=== PATIENT | male | born 1985 | race Caucasian/White ===

== ENCOUNTER 2017-12-12 21:42 | Observation (INO) | payer OTHER, SELFPAY ==
[2017-12-12] MEDS ORDERED: MORPHINE 4 MG/ML SYR ONE (22:29)
[2017-12-12] MEDS ORDERED: NA CHLORIDE 0.9% 1,000 ML ONE (22:29)
[2017-12-12] MEDS ORDERED: ONDANSETRON 4 MG/2 ML VIAL ONE (22:29)
[2017-12-12 22:32] LABS: Absolute Lymphocytes (CBC) 1.7 K/uL (0.7-4.9); Absolute Monocytes 0.6 K/uL (0.1-1.3); Absolute Neutrophil 4.9 K/uL (1.8-8.0); Basophils % 0.2 % (0-1.3); Hematocrit 43.6 % (39.6-49.0); Lymphocytes % 23.8 % (15.3-44.8); MCH 32.1 pg (27.0-35.0); MCV 90.2 fL (80-100); MPV 8.7 fL (7.6-11.3); Monocytes % 7.6 % (3.3-12.3); RBC Red Blood Cell Count 4.84 M/uL (4.33-5.43)
[2017-12-12 22:36] LABS: Protime INR 0.99
[2017-12-12] MEDS ORDERED: ASPIRIN 81 MG CHEWABLE TABLET ONE (22:40)
[2017-12-12 22:56] LABS: ALT/SGPT 36 U/L (12-78); AST/SGOT 27 U/L (15-37); Albumin 4.2 g/dL (3.4-5.0); Alkaline Phosphatase 76 U/L (45-117); BUN Blood Urea Nitrogen 17 mg/dL (7-18); Bicarbonate 29 mmol/L (21-32); Bilirubin Direct < 0.1 mg/dL (0-0.2); Bilirubin Total 0.4 mg/dL (0.2-1.0); CKMB Creatine Kinase MB 2.1 ng/mL (0.3-3.6); Creatine Phosphokinase 218 U/L (39-308); Glucose Level 105 mg/dL (74-106); Lipase 97 U/L (73-393); Magnesium 2.4 mg/dL (1.8-2.4); NT PRO-BNP 16 pg/mL (<125); Potassium 3.6 mmol/L (3.5-5.1); Protein, Total 7.3 g/dL (6.4-8.2); Sodium Level 142 mmol/L (136-145)
--- NOTE | 2017-12-12 23:06 | RAD REPORT ---
EXAM DESCRIPTION: RAD - Chest Single View - 12/12/2017 10:56 pm CLINICAL HISTORY: CHEST PAIN Chest pain. COMPARISON: No comparisons FINDINGS: Portable technique limits examination quality. The lungs are grossly clear. The heart is normal in size. No displaced fractures. IMPRESSION: No acute intrathoracic process suspected.
[2017-12-12] MEDS ORDERED: ACETAMINOPHEN 500 MG TAB PO PRN (23:15)
[2017-12-12] MEDS ORDERED: ONDANSETRON 4 MG/2 ML VIAL IV PRN (23:15)
[2017-12-12] MEDS ORDERED: MORPHINE 4 MG/ML SYR IV PRN (23:15)
[2017-12-12] MEDS ORDERED: MAGNES/ALUMIN/SIMET 30ML UCUP PO PRN (23:17)
--- NOTE | 2017-12-12 23:21 | ER ---
Nurse's Notes [facility] Name: King Aguilar Age: 32 yrs Sex: Male : 1985 Arrival Date: 12/12/2017 Time: 21:44 Bed 20 Private MD: Ernie Valenzuela Diagnosis: Other chest pain;Chest pain, unspecified Presentation: 12/12 22:05 Presenting complaint: Patient states: he is having chest pain which radiates up his bb chest to his throat and down towards his stomach pt states symptoms started approx 1900 tonight lasted about 30 minutes had similar episode in the past after which he feels tired and takes a nap. Pt is also c/o SOB states he feels SOB on exertion and notices his O2 sats fall when he lays down. Transition of care: patient was not received from another setting of care. Onset of symptoms was December 12, 2017. Risk Assessment: Do you want to hurt yourself or someone else? Patient reports no desire to harm self or others. Initial Sepsis Screen: Does the patient meet any 2 criteria? No. Patient's initial sepsis screen is negative. Does the patient have a suspected source of infection? No. Patient's initial sepsis screen is negative. Care prior to arrival: None. 22:05 Method Of Arrival: Ambulatory bb 22:05 Acuity: SANDY 3 bb Historical: - Allergies: 22:09 No Known Allergies; bb - Home Meds: 22:09 Adderall XR 10 mg Oral cp24 1 cap once daily [Active]; bb - PMHx: 22:09 ADD/ADHD; bb - PSHx: 22:09 back surgery; bb - Immunization history:: Adult Immunizations up to date. - Social history:: Smoking status: Patient/guardian denies using tobacco, Patient uses alcohol, but reports only rare drinking. Patient/guardian denies using street drugs. - Ebola Screening: : No symptoms or risks identified at this time. - Family history:: not pertinent. Screenin:15 Abuse screen: Denies threats or abuse. Denies injuries from another. Nutritional bs1 screening: No deficits noted. Tuberculosis screening: No symptoms or risk factors identified. Fall Risk None identified. Assessment: 22:12 General: Appears in no apparent distress. uncomfortable, well groomed, Behavior is bs1 calm, cooperative, appropriate for age. Pain: Complains of pain in chest Pain radiates to throat and stomach Pain began 3 hours ago. Neuro: Level of Consciousness is awake, alert, obeys commands, Oriented to person, place, time, situation, Appropriate for age. Cardiovascular: Reports chest pain, shortness of breath, Heart tones S1 S2 present Capillary refill < 3 seconds Patient's skin is warm and dry. Respiratory: Reports shortness of breath at rest on exertion Airway is patent Trachea midline Respiratory effort is even, unlabored, Respiratory pattern is regular, symmetrical, Breath sounds are clear bilaterally. GI: Abdomen is round non-distended, Bowel sounds present X 4 quads. Abdomen is tender to palpation in epigastric area Reports nausea. : No signs and/or symptoms were reported regarding the genitourinary system. EENT: No signs and/or symptoms were reported regarding the EENT system. Derm: Skin is intact, Skin is pink, warm \\T\\ dry. normal. 23:12 Reassessment: Patient appears in no apparent distress at this time. Patient and/or bs1 family updated on plan of care and expected duration. Pain level reassessed. Patient is alert, oriented x 3, equal unlabored respirations, skin warm/dry/pink. Patient states feeling better. 12/13 01:15 Reassessment: Patient appears in no apparent distress at this time. Patient and/or bs1 family updated on plan of care and expected duration. Pain level reassessed. Patient is alert, oriented x 3, equal unlabored respirations, skin warm/dry/pink. Patient denies pain at this time. Patient states symptoms have improved. 01:56 Reassessment: No changes from previously documented assessment. Patient and/or family bs1 updated on plan of care and expected duration. Pain level reassessed. Patient is alert, oriented x 3, equal unlabored respirations, skin warm/dry/pink. Patient admitted to 2nd floor. No further needs at this time. Patient refused gown. Patient states "I am comfortable like this.". Vital Signs: 12/12 22:09 BP 135 / 78; Pulse 89; Resp 20 S; Temp 98.6(O); Pulse Ox 96% on R/A; Weight 104.33 kg bb (R); Height 5 ft. 10 in. (177.80 cm) (R); Pain 3/10; 23:09 BP 136 / 95; Pulse 86; Resp 16 S; Pulse Ox 97% on R/A; Pain 0/10; bs1 12/13 00:09 BP 128 / 84; Pulse 64; Resp 16 S; Pulse Ox 97% ; bs1 01:09 BP 131 / 88; Pulse 73; Resp 16; Temp 98(O); Pulse Ox 97% on R/A; Pain 0/10; bs1 12/12 22:09 Body Mass Index 33.00 (104.33 kg, 177.80 cm) bb ED Course: 12/12 21:44 Patient arrived in ED. am2 22:03 Ernie Valenzuela MD is Private Physician. am2 22:08 Triage completed. bb 22:09 Gold Andre MD is Attending Physician. ranjith 22:09 Arm band placed on Patient placed in an exam room, on a stretcher, on monitoring analyst, bb on pulse oximetry. EKG completed in triage. Results shown to MD. 22:10 No provider procedures requiring assistance completed. Inserted saline lock: 20 gauge bs1 in right antecubital area, using aseptic technique. Blood collected. Patient maintains SpO2 saturation greater than 95% on room air. 22:11 Jagruti Tony, RN is Primary Nurse. bs1 22:15 Patient has correct armband on for positive identification. Bed in low position. Call bs1 light in reach. Side rails up X 1. personnel monitor on. Pulse ox on. NIBP on. Warm blanket given. 22:23 Radiology exam delayed due to lab results not completed at this time. (BUN/Creatinine). vr 22:54 XRAY Chest (1 view) In Process Unspecified. EDMS 23:11 Ernie Valenzuela MD is Hospitalizing Provider. ranjith 23:[address] via wheelchair. kw1 23:40 CT completed. Patient tolerated procedure well. Patient moved back from CT. kw1 12/13 01:45 Patient admitted, IV remains in place. intact. bs1 Administered Medications: 12/12 22:32 Drug: NS 0.9% 1000 ml Route: IV; Rate: 125 ml/hr; Site: right antecubital; bs1 12/13 00:06 Follow up: IV Status: Infusion continued bs1 12/12 22:32 Drug: morphine 2 mg Route: IVP; Site: right antecubital; bs1 12/13 00:06 Follow up: Response: No adverse reaction bs1 12/12 22:32 Drug: Zofran 4 mg Route: IVP; Site: right antecubital; bs1 12/13 00:06 Follow up: Response: No adverse reaction bs1 12/12 22:39 Drug: Aspirin Chewable Tablet 162 mg Route: PO; bs1 12/13 00:06 Follow up: Response: No adverse reaction bs1 00:00 Drug: GI Cocktail without - (Maalox Suspension 30 ml, Lidocaine Liquid 2 % 15 bs1 ml) Route: PO; 00:05 Follow up: Response: No adverse reaction bs1 00:00 Drug: Lovenox 100 mg Route: Sub-Q; Site: right lower abdomen; bs1 00:05 Follow up: Response: No adverse reaction bs1 00:04 Drug: ProTONIX 40 mg Route: IVP; Site: right antecubital; bs1 00:05 Follow up: Response: No adverse reaction bs1 01:45 Not Given (Patient Refused): morphine 2 mg IVP once bs1 Outcome: 12/12 23:20 Decision to Hospitalize by Provider. [facility] 12/13 01:45 Condition: stable bs1 01:45 Instructed on the need for admit. bs1 01:54 Admitted to Med/surg accompanied by tech, via wheelchair, room 225, with chart, Report bs1 called to ALLYSSA Le 01:56 Patient left the ED. bs1 Signatures: Dispatcher [employer] EDGold Cook MD MD cha Ballard, Brenda, RN RN Neetu Schultz Amanda am2 Wilhelm, Kimberly kw1 Salazar, Brittany, RN RN bs1 Corrections: (The following items were deleted from the chart) 02:01 01:56 Reassessment: No changes from previously documented assessment. Patient and/or bs1 family updated on plan of care and expected duration. Pain level reassessed. Patient is alert, oriented x 3, equal unlabored respirations, skin warm/dry/pink. Patient admitted to 2nd floor. No further needs at this time. bs1
--- NOTE | 2017-12-12 23:21 | EDPHYS ---
Physician Documentation [facility] Name: King Aguilar Age: 32 yrs Sex: Male : 1985 Arrival Date: 12/12/2017 Time: 21:44 Bed 20 Private MD: Ernie Valenzuela ED Physician Gold Andre HPI: 12/12 22:19 This 32 yrs old Male presents to ER via Ambulatory with complaints of Chest ranjith Pain > 30 y/o. 22:19 The patient or guardian reports chest pain that is located primarily in the anterior ranjith chest wall, bilaterally. The pain radiates to Associated signs and symptoms: Pertinent positives: lightheadedness, shortness of breath. The chest pain is described as a pressure, squeezing. Duration: The patient or guardian reports multiple episodes, with no pattern. Modifying factors: The symptoms are alleviated by nothing. the symptoms are aggravated by nothing. Severity of pain: in the emergency department the pain has improved moderately. The patient has experienced a previous episode, last week. Historical: - Allergies: 22:09 No Known Allergies; bb - Home Meds: 22:09 Adderall XR 10 mg Oral cp24 1 cap once daily [Active]; bb - PMHx: 22:09 ADD/ADHD; bb - PSHx: 22:09 back surgery; bb - Immunization history:: Adult Immunizations up to date. - Social history:: Smoking status: Patient/guardian denies using tobacco, Patient uses alcohol, but reports only rare drinking. Patient/guardian denies using street drugs. - Ebola Screening: : No symptoms or risks identified at this time. - Family history:: not pertinent. ROS: 22:19 Constitutional: Negative for fever, chills, and weight loss, Eyes: Negative for injury, ranjith pain, redness, and discharge, ENT: Negative for injury, pain, and discharge, Neck: Negative for injury, pain, and swelling, Respiratory: Negative for shortness of breath, cough, wheezing, and pleuritic chest pain, Abdomen/GI: Negative for abdominal pain, nausea, vomiting, diarrhea, and constipation, Back: Negative for injury and pain, : Negative for injury, bleeding, discharge, and swelling, MS/Extremity: Negative for injury and deformity, Skin: Negative for injury, rash, and discoloration, Neuro: Negative for headache, weakness, numbness, tingling, and seizure, Psych: Negative for depression, anxiety, suicide ideation, homicidal ideation, and hallucinations, Allergy/Immunology: Negative for hives, rash, and allergies, Endocrine: Negative for neck swelling, polydipsia, polyuria, polyphagia, and marked weight changes, Hematologic/Lymphatic: Negative for swollen nodes, abnormal bleeding, and unusual bruising. 22:19 Cardiovascular: Positive for chest pain, of the chest. Exam: 22:19 Constitutional: This is a well developed, well nourished patient who is awake, alert, ranjith and in no acute distress. Head/Face: Normocephalic, atraumatic. Eyes: Pupils equal round and reactive to light, extra-ocular motions intact. Lids and lashes normal. Conjunctiva and sclera are non-icteric and not injected. Cornea within normal limits. Periorbital areas with no swelling, redness, or edema. ENT: Nares patent. No nasal discharge, no septal abnormalities noted. Tympanic membranes are normal and external auditory canals are clear. Oropharynx with no redness, swelling, or masses, exudates, or evidence of obstruction, uvula midline. Mucous membranes moist. Neck: Trachea midline, no thyromegaly or masses palpated, and no cervical lymphadenopathy. Supple, full range of motion without nuchal rigidity, or vertebral point tenderness. No Meningismus. Chest/axilla: Normal chest wall appearance and motion. Nontender with no deformity. No lesions are appreciated. Cardiovascular: Regular rate and rhythm with a normal S1 and S2. No gallops, murmurs, or rubs. Normal PMI, no JVD. No pulse deficits. Respiratory: Lungs have equal breath sounds bilaterally, clear to auscultation and percussion. No rales, rhonchi or wheezes noted. No increased work of breathing, no retractions or nasal flaring. Abdomen/GI: Soft, non-tender, with normal bowel sounds. No distension or tympany. No guarding or rebound. No evidence of tenderness throughout. Back: No spinal tenderness. No costovertebral tenderness. Full range of motion. Male : Normal genitalia with no discharge or lesions. Skin: Warm, dry with normal turgor. Normal color with no rashes, no lesions, and no evidence of cellulitis. MS/ Extremity: Pulses equal, no cyanosis. Neurovascular intact. Full, normal range of motion. Neuro: Awake and alert, GCS 15, oriented to person, place, time, and situation. Cranial nerves II-XII grossly intact. Motor strength 5/5 in all extremities. Sensory grossly intact. Cerebellar exam normal. Normal gait. Psych: Awake, alert, with orientation to person, place and time. Behavior, mood, and affect are within normal limits. Vital Signs: 22:09 BP 135 / 78; Pulse 89; Resp 20 S; Temp 98.6(O); Pulse Ox 96% on R/A; Weight 104.33 kg bb (R); Height 5 ft. 10 in. (177.80 cm) (R); Pain 3/10; 23:09 BP 136 / 95; Pulse 86; Resp 16 S; Pulse Ox 97% on R/A; Pain 0/10; bs1 12/13 00:09 BP 128 / 84; Pulse 64; Resp 16 S; Pulse Ox 97% ; bs1 01:09 BP 131 / 88; Pulse 73; Resp 16; Temp 98(O); Pulse Ox 97% on R/A; Pain 0/10; bs1 12/12 22:09 Body Mass Index 33.00 (104.33 kg, 177.80 cm) bb MDM: 12/12 22:09 Patient medically screened. [facility] 22:22 Data reviewed: vital signs, nurses notes, lab test result(s), EKG, radiologic studies, [facility] CT scan, plain films. 12/12 22:18 Order name: Basic Metabolic Panel; Complete Time: 23: [facility] 12/12 22:18 Order name: CBC with Diff; Complete Time: 23: [facility] 12/12 22:18 Order name: Ckmb; Complete Time: 23: [facility] 12/12 22:18 Order name: CPK; Complete Time: 23: [facility] 12/12 22:18 Order name: LFT's; Complete Time: 23: [facility] 12/12 22:18 Order name: Magnesium; Complete Time: 23: [facility] 12/12 22:18 Order name: NT PRO-BNP; Complete Time: 23:06 [facility] 12/12 22:18 Order name: PT-INR; Complete Time: 23:06 [facility] 12/12 22:18 Order name: Ptt, Activated; Complete Time: 23:06 [facility] 12/12 22:18 Order name: Troponin (emerg Dept Use Only); Complete Time: 23:06 [facility] 12/12 22:18 Order name: Lipase; Complete Time: 23:06 [facility] 12/12 22:18 Order name: UDS [facility] 12/12 23:19 Order name: Basic Metabolic Panel [facility] 12/12 23:19 Order name: Basic Metabolic Panel [facility] 12/12 22:18 Order name: XRAY Chest (1 view); Complete Time: 23:20 [facility] 12/12 22:19 Order name: CT Aorta for Dissection [facility] 12/12 23:19 Order name: CBC with Automated Diff [facility] 12/12 23:19 Order name: CBC with Automated Diff [facility] 12/12 23:19 Order name: Troponin I [facility] 12/12 23:19 Order name: Troponin I [facility] 12/12 23:19 Order name: Troponin I [facility] 12/13 00:11 Order name: Urine Dipstick--Ancillary (enter results) [facility] 12/13 01:40 Order name: Urine Dipstick-Ancillary [facility] 12/12 22:18 Order name: EKG; Complete Time: 22:18 [facility] 12/12 22:18 Order name: Cardiac monitoring; Complete Time: 22:18 [facility] 12/12 22:18 Order name: EKG - Nurse/Tech; Complete Time: 22:18 [facility] 12/12 22:18 Order name: IV Saline Lock; Complete Time: 22:18 [facility] 12/12 22:18 Order name: Labs collected and sent; Complete Time: 22:36 [facility] 12/12 22:18 Order name: O2 Per Protocol; Complete Time: 22:19 [facility] 12/12 22:18 Order name: O2 Sat Monitoring; Complete Time: 22:19 [facility] 12/12 22:18 Order name: Urine Dipstick-Ancillary (obtain specimen); Complete Time: 00:08 [facility] 12/12 23:15 Order name: CONS Physician Consult [facility] 12/12 23:19 Order name: Regular [facility] 12/12 23:19 Order name: EKG Electrocardiogram [facility] 12/12 23:19 Order name: EKG Electrocardiogram [facility] 12/12 23:19 Order name: EKG Electrocardiogram [facility] 12/12 23:19 Order name: EKG Electrocardiogram ED[facility] Administered Medications: 22:32 Drug: NS 0.9% 1000 ml Route: IV; Rate: 125 ml/hr; Site: right antecubital; bs1 12/13 00:06 Follow up: IV Status: Infusion continued bs1 12/12 22:32 Drug: morphine 2 mg Route: IVP; Site: right antecubital; bs1 12/13 00:06 Follow up: Response: No adverse reaction bs1 12/12 22:32 Drug: Zofran 4 mg Route: IVP; Site: right antecubital; bs1 12/13 00:06 Follow up: Response: No adverse reaction bs1 12/12 22:39 Drug: Aspirin Chewable Tablet 162 mg Route: PO; bs1 12/13 00:06 Follow up: Response: No adverse reaction bs1 00:00 Drug: GI Cocktail without - (Maalox Suspension 30 ml, Lidocaine Liquid 2 % 15 bs1 ml) Route: PO; 00:05 Follow up: Response: No adverse reaction bs1 00:00 Drug: Lovenox 100 mg Route: Sub-Q; Site: right lower abdomen; bs1 00:05 Follow up: Response: No adverse reaction bs1 00:04 Drug: ProTONIX 40 mg Route: IVP; Site: right antecubital; bs1 00:05 Follow up: Response: No adverse reaction bs1 01:45 Not Given (Patient Refused): morphine 2 mg IVP once bs1 Disposition: 12/12/17 23:20 Hospitalization ordered by Ernie Valenzuela for Observation. Preliminary diagnosis are Other chest pain, Chest pain, unspecified. - Bed requested for Telemetry/MedSurg (observation). - Status is Observation. bs1 - Condition is Stable. - Problem is new. - Symptoms have improved. UTI on Admission? No Signatures: Dispatcher [employer] EDMadai Quach RN RN kl Anderson, Corey, MD MD cha Ballard, Brenda RN RN Jagruti Lao RN RN bs1 Corrections: (The following items were deleted from the chart) 12/12 23:47 23:20 Hospitalization Ordered by Ernie Valenzuela MD for Observation. Preliminary kl diagnosis is Other chest pain; Chest pain, unspecified. Bed requested for Telemetry/MedSurg (observation). Status is Observation. Condition is Stable. Problem is new. Symptoms have improved. UTI on Admission? No. ranjith 12/13 01:56 12/12 23:47 12/12/2017 23:20 Hospitalization Ordered by Ernie Valenzuela MD for bs1 Observation. Preliminary diagnosis is Other chest pain; Chest pain, unspecified. Bed requested for Telemetry/MedSurg (observation). Status is Observation. Condition is Stable. Problem is new. Symptoms have improved. UTI on Admission? No. kl
[2017-12-12] MEDS ORDERED: MAGNE/ALUM HYDROXD 30 ML UCUP ONE (23:24)
[2017-12-12] MEDS ORDERED: PANTOPRAZOLE 40 MG INJ ONE (23:24)
[2017-12-12] MEDS ORDERED: ENOXAPARIN 100 MG/ML SYR SQ ONE (23:24)
[2017-12-12] MEDS ORDERED: LIDOCAINE VISCOUS 2% SOLN 15 ML UDC ONE (23:24)
[2017-12-12] MEDS: NA CHLORIDE 0.9% 1,000 ML IV SCH (23:45)
[2017-12-13 01:38] LABS: Barbiturates NEGATIVE (NEGATIVE); Benzodiazepines NEGATIVE (NEGATIVE); Cocaine NEGATIVE (NEGATIVE); METHAMPHETAM POSITIVE (NEGATIVE); Methadone NEGATIVE (NEGATIVE); Opiates NEGATIVE (NEGATIVE); Phencyclidine NEGATIVE (NEGATIVE); THC Cannibis NEGATIVE (NEGATIVE)
[2017-12-13 01:40] LABS: Urine Blood NEGATIVE (NEG); Urine Glucose NEGATIVE (NEG); Urine Protein NEGATIVE (NEG); Urine pH 6.5 (5.0-7.0)
[2017-12-13 02:11] VITALS: BMI 32.8
[2017-12-13 04:42] LABS: Urine Appearance CLEAR; Urine Bilirubin NEGATIVE (NEG); Urine Blood NEGATIVE (NEG); Urine Color YELLOW; Urine Glucose NEGATIVE (NEG); Urine Protein NEGATIVE (NEG); Urine Specific Gravity >=1.030 (1.005-1.030); Urine pH 6.5 (5.0-7.0)
[2017-12-13 04:50] LABS: Urine Microscopic Reflex NO UMIC
[2017-12-13] MEDS: NA CHLORIDE 0.9% 1,000 ML IV SCH ×2 (04:59→09:16)
[2017-12-13 05:07] LABS: Absolute Lymphocytes (CBC) 2.1 K/uL (0.7-4.9); Absolute Monocytes 0.4 K/uL (0.1-1.3); Absolute Neutrophil 3.3 K/uL (1.8-8.0); Basophils % 0.5 % (0-1.3); Eosinophils % 1.3 % (0-4.4); Hematocrit 41.5 % (39.6-49.0); Lymphocytes % 35.1 % (15.3-44.8); MCH 31.8 pg (27.0-35.0); MCV 90.3 fL (80-100); MPV 8.8 fL (7.6-11.3); Monocytes % 6.8 % (3.3-12.3)
[2017-12-13 05:23] LABS: Potassium 3.9 mmol/L (3.5-5.1)
[2017-12-13 06:02] VITALS: O2SAT 97
--- NOTE | 2017-12-13 08:17 | RAD REPORT ---
EXAM DESCRIPTION: CT - Angio Aorta For Dissection - 12/13/2017 4:47 am CLINICAL HISTORY: Chest pain radiating to the back. Chest pain;Dyspnea COMPARISON: CT-STONE PROTOCOL dated 03/31/2007 TECHNIQUE: CT angiography of the aorta was performed with MIPs. All CT scans are performed using dose optimization technique as appropriate and may include automated exposure control or mA/KV adjustment according to patient size. FINDINGS: A left aortic arch is present with 4 vessel branching pattern of the great vessels.No acut e aortic finding is seen such as aneurysm, penetrating ulcer or dissection. The celiac axis, SMA, IM A and renal arteries are widely patent. No evidence of pulmonary embolism. The lungs are clear. The liver demonstrates no focal mass or biliary dilatation.The spleen, pancreas, adrenal glands and k idneys are within normal limits for arterial phase imaging. No bowel obstruction, free fluid or abscess.No pathologic enlarged lymphadenopathy identified. No fracture or worrisome bone lesion seen.Moderate L5-S1 spondylosis. IMPRESSION: No acute aortic finding is demonstrated.
[2017-12-13] MEDS ORDERED: ASPIRIN EC 81 MG TAB PO SCH (09:00)
[2017-12-13] MEDS ORDERED: MAGNES/ALUMIN/SIMET 30ML UCUP PO PRN (10:05)
[2017-12-13] MEDS ORDERED: LIDOCAINE VISCOUS 2% SOLN 15 ML UDC PO PRN (10:06)
[2017-12-13] MEDS ORDERED: DICYCLOMINE HCL 10 MG CAP PO SCH (14:00)
[2017-12-13 17:43] VITALS: BP 116/67; TEMP 97.9
--- NOTE | 2017-12-14 10:32 | EKG ---
Test Date: 2017-12-12 Test Time: 21:58:00 [employer]onemason Helper: RAKESH MEASUREMENT RESULTS: Intervals: Rate: 89 KS: 178 QRSD: 90 QT: 348 QTc: 423 [place]: P: 58 KS: 178 QRS: 47 T: 26 INTERPRETIVE STATEMENTS: Normal sinus rhythm Normal ECG No previous ECG available for comparison Electronically Signed On 12-14-17 10:27:44 CDT by Meng Steven
--- NOTE | 2017-12-14 13:33 | CON ---
Mr. King Aguilar is admitted to Dr. Valenzuela on 12/12/2017 for chest pain. History Of Present Illness: Mr. Aguilar is only 32. No previous cardiac history. He has a history of attention deficit disorder, elevated stress in his life. He takes Adderall for about 2-3 years. He had symptoms of chest pain, diaphoresis that would last about 45 minutes, nonexertional. Denied PND , orthopnea, pedal edema, palpitations, or syncope. By the time I saw him, he had a normal EKG, norm al chest x-ray, normal troponin, CPKs, and MBs. He was still having chest pain when I saw him. Allergies: NONE. Review of Systems: Negative. Social History: Positive for stress issues. Denies any drug, alcohol, or tobacco abuse. Family History: Positive for heart disease. Medications: At home include Adderall. Physical Examination: General: He appeared to be very anxious, but no acute distress. Vital signs: Stable, afebrile. HEENT: Negative. Neck: Supple without any bruit, lymphadenopathy, JVD, or thyromegaly. Chest: Clear to auscultation, percussion. Cardiac: Revealed a regular rhythm and rate without any murmurs, gallops, or rubs. Abdomen: Benign. Extremities: Revealed no clubbing, cyanosis, or edema. Diagnostic Data: Normal. Impression And Plan: Atypical chest pain, more likely to be gastroesophageal reflux disease or esoph agitis secondary to stress. Nevertheless, he has a family history of heart disease and I would feel more comfortable if we an echocardiogram and a stress test before he leaves. If that is normal, he c an go home. I would consider a proton pump inhibitor on him. The case was discussed with Dr. Miguel FOWLER/RAFAEL Voice ID: [id number] Report ID: [id number]
--- NOTE | 2017-12-14 16:21 | SS ---
Date of Discharge: 12/13/2017 The patient was admitted from the emergency room where he was brought by some friends, complaining of rather significant sternal chest pain. He stated the episode like this in the past; however, this o ne has been more persistent. There was no definitive diagnosis made in the emergency room; however, due to his persistent symptoms, it was felt that he should be evaluated and he was therefore admitted . During the hospitalization, he had minimal amount of discomfort, vital signs remained stable. Wor kup included cardiac and stress tests, were within normal limits. On discussion of the issue with darling e patient, it seems that he gets dyspnea with minimal exertion episodically and this results sometime s in the chest pain. He also has multiple joint pains. This has been evaluated on an outpatient bas is and suggestions were made for him to follow up with the progressive die maker. During his hospital stay he was given Bentyl, which made him quite sleepy; however whether effect of this or not, it is unsure . In any event he was stable enough and asymptomatic to be discharged to followup in a couple of day s in the office. The only positive chemical finding was a borderline serum cortisols, this we will r epeat in a.m. 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 Discharged on no medications. Try to withhold hi s Adderall, which he has been on for a number of years. Possibly this is playing a part as well as jay dotson has been under some stress as of late. Discharged in good condition. Final Diagnosis: Chest pain atypical, unknown etiology. HR/MODL Voice ID: [id number] Report ID: [id number]
--- NOTE | 2017-12-16 08:28 | ECHO ---
HEIGHT: 5 ft 10 in WEIGHT: 229 lb 3.2 oz DATE OF STUDY: 12/13/[address]: Meng Steven MD 2-DIMENSIONAL: YES M.MODE: YES DOPPLER: YES COLOR FLOW: YES TDS: NO PORTABLE: NO DEFINITY: NO BUBBLE STUDY: NO DIAGNOSIS: CHEST PAIN CARDIAC HISTORY: CATHERIZATION: NO SURGERY: NO PROSTHETIC VALVE: NO PACEMAKER: NO MEASUREMENTS (cm) DIASTOLIC (NORMALS) SYSTOLIC (NORMALS) IVSd 1.0 (0.6-1.2) LA Diam 3.4 (1.9-4.0) LVEF 76% LVIDd 4.5 (3.5-5.7) LVIDs 2.5 (2.0-3.5) %FS 44% LVPWd 1.1 (0.6-1.2) Ao Diam 3.6 (2.0-3.7) 2 DIMENSIONAL ASSESSMENT: RIGHT ATRIUM: NORMAL LEFT ATRIUM: NORMAL RIGHT VENTRICLE: NORMAL LEFT VENTRICLE: NORMAL TRICUSPID VALVE: NORMAL MITRAL VALVE: NORMAL PULMONIC VALVE: NORMAL AORTIC VALVE: NORMAL PERICARDIAL EFFUSION: NONE AORTIC ROOT: NORMAL LEFT VENTRICULAR WALL MOTION: NORMAL. DOPPLER/COLOR FLOW: NORMAL. COMMENTS: NORAML 2D ECHO WITH DOPPLER. TECHNOLOGIST: KATE BAKER
--- NOTE | 2017-12-16 08:40 | TREADMILL ---
70% H.R.: 132 85% H.R.: 160 90% H.R.: 169 100% H.R.: 188 DX: CHEST PAIN Date of Study: 12/13/17 Ht: 5 10 Wt: 229 lb 3.2 oz Consulting Physician: ALEKS MEDICATIONS: TYLENOL, MAALOX, ASPIRIN, ZOFRAN HISTORY: 32 YEAR OLD MALE. COMPLAINTS CHEST PAIN. MEDICAL HISTORY ADD/ADHD PHYSICIAL EXAMINATION: RESTING B.P.: 127/87 RESTING H.R.: 66 RESTING EKG: NORMAL PROTOCOL: ANAM ROUTINE EXERCISE TIME: 10:31 MAXIMUM HEART RATE: 173 % OF PREDICTED B.P. AT PEAK STRESS: 154/82 H.R. AT 1 MINUTE POST EXERCISE: 153 IMPRESSION: ANAM ROUTINE STRESS STOPPED DUE TO TARGET HEART RATE REACHED PER PROTOCOL. NO SUPRA VENTRICULAR TACHYCARDIA. NO VENTRICULAR TACHYCARDIA. NO PREMATURE VENTRICULAR COMPLEXES. DENIES CHEST PAIN, SHORTNESS OF BREATH DURING RECOVERY. NEGATIVE EXERCISE TREADMILL TEST.
== END 2017-12-13 18:40 | disposition home or self-care (01) ==
LOC: ER 21:42 → ERHOLD 23:23 → 2ND 12-13 00:07
PROVIDERS: ADMIT Family Medicine; ATTEND Family Medicine
DX: R07.89 Other chest pain (principal); F98.8 Other specified behavioral and emotional disorders with onset usually occurring in childhood and adolescence
CPT/HCPCS: 36415; 71045; 71275; 74175; 80048; 80076; 80307; 81003; 82533; 82550; 82553; 83690; 83735; 83880; 84484; 85025; 85610; 85730; 93005; 93017; 93306; 96361; 96372; 96374; 96375; 99285; C9113; G0378; J1650; J2405; J7030; Q9967

== ENCOUNTER 2018-04-13 07:43 | Emergency (ER) | payer OTHER ==
--- OUTSIDE RECORDS SUMMARY | 2018-04-13 07:46 | XMS REPORT ---
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
--- OUTSIDE RECORDS SUMMARY | 2018-04-13 07:46 | XMS REPORT ---
:1985 Author Organization eClinicalWorks Care Team Providers Name Role Phone Rayn [facility] Provider Role Unavailable Allergies No Known [...]
--- OUTSIDE RECORDS SUMMARY | 2018-04-13 07:46 | XMS REPORT | Continuity of Care Document ---
:1985 Author Organization Interface Problems Problem Status Onset Classification Date Comments Source Date Reported Adrenal Active Diagnosis 04/08/2018 Joe insufficiency [place] Anxiety Active Problem 04/08/2018 Joe Peña Obesity Active Problem 04/08/2018 Joe Peña Migraine Active Problem 04/08/2018 Joe Peña ED Active Diagnosis 04/08/2018 Joe Peña Arthralgia Active Problem 04/08/2018 Joe Peña Chronic fatigue, Active Problem 04/08/2018 Joe unspecified [place] Medications Medication Details Route Status Patient Ordering Order Source Instructions Provider Date Adderall 1 tab(s) orally Active 20 mg orally 2 [place] Joe times a day [place] tramadol 1 tab(s) orally Active 50 mg orally [place] Diaz prn [place] Allergies, Adverse Reactions, Alerts Substance Category Reaction Severity Reaction Status Date Comments Source type Reported N.K.D.A. Adverse Info Not Adverse Active Joe Reaction Available Reaction 8 [place] Immunizations Immunization Date Given Site Status Last Updated Comments Source Results Order Results Value Reference Date Interpretation Comments Source Name Range Vital Signs Vital Sign Value Date Comments Source Weight 229 03/13/2018 Joe Peña Height 70 03/13/2018 Joe Peña Encounters Location Location Encounter Encounter Reason Attending ADM DC Status Source Details Type Number For Provider Date Date Visit Procedures Procedure Code Date Perfomer Comments Source
--- OUTSIDE RECORDS SUMMARY | 2018-04-13 07:46 | XMS REPORT ---
:1985 Author Organization eClinicalWorks Care Team Providers Name Role Phone Cassie Peña Provider Role Unavailable Allergies No Known Allergies Problems Problem Type Condition Code Onset Dates Condition Status Problem Anxiety F41.9 Active Problem Obesity (BMI 30-39.9) E66.9 Active Problem Migraine G43.909 Active Problem Adrenal insufficiency E27.40 Active Problem ED (erectile dysfunction) N52.9 Active Problem Arthralgia M25.50 Active Problem Chronic fatigue, unspecified R53.82 Active Medications No Known Medications Results No Known Results Summary Purpose eClinicalWorks Submission
--- OUTSIDE RECORDS SUMMARY | 2018-04-13 07:46 | XMS REPORT ---
:1985 Author Organization eClinicalWorks Care Team Providers Name Role Phone Cassie Peña Provider Role Unavailable Allergies No Known Allergies Problems Problem Type Condition Code Onset Dates Condition Status Assessment Adrenal insufficiency E27.40 Active Problem Anxiety F41.9 Active Problem Obesity (BMI 30-39.9) E66.9 Active Problem Migraine G43.909 Active Problem Adrenal insufficiency E27.40 Active Problem ED (erectile dysfunction) N52.9 Active Problem Arthralgia M25.50 Active Problem Chronic fatigue, unspecified R53.82 Active Medications No Known Medications Results No Known Results Summary Purpose eClinicalWorks Submission
--- OUTSIDE RECORDS SUMMARY | 2018-04-13 07:46 | XMS REPORT ---
:1985 Author Organization eClinicalWorks Care Team Providers Name Role Phone Cassie Peña Provider Role Unavailable Allergies, Adverse Reactions, Alerts Substance Reaction Event Type N.K.D.A. Info Not Available Non Drug Allergy Problems Problem Type Condition Code Onset Dates Condition Status Assessment ED (erectile dysfunction) N52.9 Active Assessment Adrenal insufficiency E27.40 Active Problem Anxiety F41.9 Active Problem Obesity (BMI 30-39.9) E66.9 Active Problem Migraine G43.909 Active Problem Adrenal insufficiency E27.40 Active Problem ED (erectile dysfunction) N52.9 Active Problem Arthralgia M25.50 Active Problem Chronic fatigue, unspecified R53.82 Active Assessment Arthralgia M25.50 Active Assessment Obesity (BMI 30-39.9) E66.9 Active Assessment Chronic fatigue, unspecified R53.82 Active Assessment Anxiety F41.9 Active Assessment Migraine G43.909 Active Medications Medication Code System Code Instructions Start Date End Date Status Dosage Adderall [facility] 35466934149 20 mg orally 2 Active 1 tab(s) times a day tramadol ND 50830911836 50 mg orally prn Active 1 tab(s) Vital Signs Date/Time: Mar 13, 2018 BMI 32.85 Index Weight 229 lbs Height 70 in Results Name Result Date Reference Range Unit Abnormality Flag TSH+Free T4* ----TSH 1.660 73031717 0.450-4.500 uIU/mL ----T4,Free(Direct) 1.00 79835943 0.82-1.77 ng/dL Testosterone, Total *Serum* (USE THIS FOR M & F PTs) ----Testosterone, Total, 455 41306430 ng/dL LC/MS Lipid Panel w/non-HDL* ----Non-HDL Cholesterol 129 94410070 0-129 mg/dL ----LDL Cholesterol Calc 105 24806856 0-99 mg/dL H ----Cholesterol, Total 166 80041491 100-199 mg/dL ----Triglycerides 120 82493861 0-149 mg/dL ----HDL Cholesterol 37 66829613 >39 mg/dL L ----VLDL Cholesterol [place] 24 38135409 5-40 mg/dL DHEA, Serum ----Dehydroepiandrostero 763 82408532 31-701 ng/dL H ne (DHEA) Prolactin* ----Prolactin 17.0 23399660 4.0-15.2 ng/mL H Cortisol - PM* ----Cortisol - PM 7.6 20180314 2.3-11.9 ug/dL ACTH, Plasma* ----ACTH, Plasma 33.5 09072571 7.2-63.3 pg/mL Comp. Metabolic Panel (14)* ----Potassium 4.3 20180314 3.5-5.2 mmol/L ----Sodium 142 49834041 134-144 mmol/L ----BUN/Creatinine Ratio 10 20180314 9-20 ----eGFR If Africn Am 119 [id number] >59 mL/min/1.73 ----eGFR If NonAfricn Am 103 75749020 >59 mL/min/1.73 ----Creatinine 0.97 19149684 0.76-1.27 mg/dL ----BUN 10 20180314 6-20 mg/dL ----Glucose 92 95189080 65-99 mg/dL ----AST (SGOT) 31 20180314 0-40 IU/L ----Globulin, Total 2.5 85835365 1.5-4.5 g/dL ----ALT (SGPT) 39 20180314 0-44 IU/L ----A/G Ratio 1.8 20180314 1.2-2.2 ----Bilirubin, Total 0.6 11203559 0.0-1.2 mg/dL ----Alkaline Phosphatase 58 20180314 39-117 IU/L ----Carbon Dioxide, 25 20180314 20-29 mmol/L Total ----Calcium 9.3 53301685 8.7-10.2 mg/dL ----Protein, Total 6.9 20180314 6.0-8.5 g/dL ----Albumin 4.4 20180314 3.5-5.5 g/dL ----Chloride 103 71850677 96-106 mmol/L Cortisol - AM* ----Cortisol - AM 13.6 20180314 6.2-19.4 ug/dL Summary Purpose eClinicalWorks Submission
--- OUTSIDE RECORDS SUMMARY | 2018-04-13 07:46 | XMS REPORT ---
:1985 Author Organization eClinicalWorks Care Team Providers Name Role Phone Davis, [facility] Provider Role Unavailable Allergies, Adverse Reactions, Alerts Substance Reaction Event Type N.K.D.A. 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
[2018-04-13] MEDS ORDERED: KETOROLAC 30 MG/ML INJ ONE (08:09)
--- NOTE | 2018-04-13 08:32 | RAD REPORT ---
EXAM DESCRIPTION: CT - C Spine Wo Con - 04/13/2018 8:20 am CLINICAL HISTORY: Neck pain, decreased range of motion COMPARISON: None. TECHNIQUE: Axial 2 mm thick images of the cervical spine were obtained with sagittal and coronal rec onstruction images generated and reviewed. All CT scans are performed using dose optimization technique as appropriate and may include automated exposure control or mA/KV adjustment according to patient size. FINDINGS: Cervical body height and alignment are normal. No disk space narrowing. No fracture or acu te bony abnormality. Patient has minimal or early spurring along the right-side posterior endplates C 5-6. No canal encroachment. No paraspinal mass or hematoma. Patient has a few small nonspecific cervical lymph nodes not regarded as suspicious. Central canal detail is inherently limited on CT imaging. IMPRESSION: Negative CT cervical spine examination for acute or significant finding.
[2018-04-13] MEDS ORDERED: predniSONE 20 MG TAB ONE (08:56)
[2018-04-13] MEDS ORDERED: HYDROCODONE/APAP 10/325 TAB ONE (08:57)
--- NOTE | 2018-04-13 09:02 | EDPHYS ---
Physician Documentation [facility] Name: King Aguilar Age: 32 yrs Sex: Male : 1985 Arrival Date: 04/13/2018 Time: 07:46 Bed 20 Private MD: Deana Davish ED Physician Max Maynard HPI: 04/13 08:51 This 32 yrs old Male presents to ER via Ambulatory with complaints of Stiff gs Neck. 08:51 The patient or guardian complains of pain. The symptoms are located on the scalp and gs right trapezius. Onset: The symptoms/episode began/occurred today. Associated signs and symptoms: Pertinent negatives: bladder incontinence, bowel incontinence, numbness, tingling. The pain does not radiate. Modifying factors: the symptoms are aggravated by movement. Severity of symptoms: At their worst the symptoms were moderate, in the emergency department the symptoms are unchanged. The patient has experienced similar episodes in the past, several times, past two weeks intermittent had neck xrays 2 weeks ago. Historical: - Allergies: 07:53 No Known Allergies; hb - Home Meds: 07:53 None [Active]; hb - PMHx: 07:54 ADD/ADHD; hb - PSHx: 07:53 back surgery; hb - Immunization history:: Adult Immunizations up to date. - Social history:: Smoking status: Patient/guardian denies using tobacco. - Ebola Screening: : No symptoms or risks identified at this time. ROS: 08:51 All other systems are negative. gs Exam: 08:51 Head/Face: Normocephalic, atraumatic. Eyes: Pupils equal round and reactive to light, gs extra-ocular motions intact. Lids and lashes normal. Conjunctiva and sclera are non-icteric and not injected. Cornea within normal limits. Periorbital areas with no swelling, redness, or edema. ENT: Nares patent. No nasal discharge, no septal abnormalities noted. Tympanic membranes are normal and external auditory canals are clear. Oropharynx with no redness, swelling, or masses, exudates, or evidence of obstruction, uvula midline. Mucous membranes moist. Chest/axilla: Normal chest wall appearance and motion. Nontender with no deformity. No lesions are appreciated. Cardiovascular: Regular rate and rhythm with a normal S1 and S2. No gallops, murmurs, or rubs. Normal PMI, no JVD. No pulse deficits. Respiratory: Lungs have equal breath sounds bilaterally, clear to auscultation and percussion. No rales, rhonchi or wheezes noted. No increased work of breathing, no retractions or nasal flaring. Abdomen/GI: Soft, non-tender, with normal bowel sounds. No distension or tympany. No guarding or rebound. No evidence of tenderness throughout. Back: No spinal tenderness. No costovertebral tenderness. Full range of motion. Skin: Warm, dry with normal turgor. Normal color with no rashes, no lesions, and no evidence of cellulitis. MS/ Extremity: Pulses equal, no cyanosis. Neurovascular intact. Full, normal range of motion. Neuro: Awake and alert, GCS 15, oriented to person, place, time, and situation. Cranial nerves II-XII grossly intact. Motor strength 5/5 in all extremities. Sensory grossly intact. Cerebellar exam normal. Normal gait. 08:51 Constitutional: The patient appears alert, awake. 08:51 Neck: C-spine: no acute changes, vertebral tenderness, is not appreciated, ROM/movement: pain, with any movement. Vital Signs: 07:52 BP 108 / 88; Pulse 80; Resp 16; Temp 97.7(O); Pulse Ox 100% on R/A; Pain 8/10; hb MDM: 07:53 Patient medically screened. jr8 08:51 Differential diagnosis: Cervical Disc Herniation Cervical Discogenic Pain cervical gs strain, torticollis. Data reviewed: vital signs, nurses notes. Counseling: I had a detailed discussion with the patient and/or guardian regarding: the historical points, exam findings, and any diagnostic results supporting the discharge/admit diagnosis, radiology results. Response to treatment: the patient's symptoms have markedly improved after treatment, and as a result, I will discharge patient. 04/13 07:58 Order name: CT C Spine; Complete Time: 08:45 gs Administered Medications: 08:05 Drug: TORadol 30 mg Route: IM; Site: left deltoid; iw 08:47 Follow up: Response: No adverse reaction; Pain is unchanged, physician notified em 08:57 Drug: predniSONE 40 mg Route: PO; em 08:57 Drug: Marshall 10 mg-325 mg 1 tabs Route: PO; em Disposition: 04/13/18 09:01 Discharged to Home. Impression: Torticollis. - Condition is Stable. - Discharge Instructions: Acute Torticollis, Adult. - Prescriptions for Prednisone 20 mg Oral Tablet - take 1 tablet by ORAL route once daily for 5 days; 5 tablet. Tylenol- Codeine #4 300-60 mg Oral Tablet - take 1 tablet by ORAL route every 6 hours As needed; 10 tablet. - Medication Reconciliation Form, Thank You Letter, Antibiotic Education, Prescription Opioid Use form. - Follow up: Andry Lai DO; When: 2 - 3 days; Reason: Re-evaluation by your physician. Follow up: Alden Joseph MD; When: 2 - 3 days; Reason: Re-evaluation by your physician. Signatures: Dispatcher [employer] EDGerald Kramer, ALIGNMENT SPECIALIST ALIGNMENT SPECIALIST Barbara Resendiz RN RN Abhishek Chapa PA PA jr8 Virgen Worrell RN RN hb Starr, Gregory, MD MD Corrections: (The following items were deleted from the chart) 09:27 09:01 04/13/2018 09:01 Discharged to Home. Impression: Torticollis. Condition is em Stable. Forms are Medication Reconciliation Form, Thank You Letter, Antibiotic Education, Prescription Opioid Use. Follow up: Andry Lai; When: 2 - 3 days; Reason: Re-evaluation by your physician. Follow up: Alden Joseph; When: 2 - 3 days; Reason: Re-evaluation by your physician. gs
--- NOTE | 2018-04-13 09:02 | ER ---
Nurse's Notes [facility] Name: King Aguilar Age: 32 yrs Sex: Male : 1985 Arrival Date: 04/13/2018 Time: 07:46 Bed 20 Private MD: Ziggy Davis Diagnosis: Torticollis Presentation: 04/13 07:51 Presenting complaint: Neck pain upon waking today. Denies injury. Transition of care: hb patient was not received from another setting of care. Onset of symptoms was April 13, 2018. Risk Assessment: Do you want to hurt yourself or someone else? Patient reports no desire to harm self or others. Initial Sepsis Screen: Does the patient meet any 2 criteria? No. Patient's initial sepsis screen is negative. Does the patient have a suspected source of infection? No. Patient's initial sepsis screen is negative. Care prior to arrival: None. 07:51 Method Of Arrival: Ambulatory 07:51 Acuity: SANDY 4 hb Historical: - Allergies: 07:53 No Known Allergies; hb - Home Meds: 07:53 None [Active]; hb - PMHx: 07:54 ADD/ADHD; hb - PSHx: 07:53 back surgery; hb - Immunization history:: Adult Immunizations up to date. - Social history:: Smoking status: Patient/guardian denies using tobacco. - Ebola Screening: : No symptoms or risks identified at this time. Screenin:54 Abuse screen: Denies threats or abuse. Denies injuries from another. Nutritional hb screening: No deficits noted. Tuberculosis screening: No symptoms or risk factors identified. Fall Risk None identified. Assessment: 07:56 General: Appears uncomfortable, Behavior is calm, cooperative. Pain: Complains of pain iw in right trapezius and neck Pain currently is 7 out of 10 on a pain scale. Neuro: Level of Consciousness is awake, alert, obeys commands, Oriented to person, place, time, situation, [place] are equal bilaterally Moves all extremities. Full function Gait is steady, Speech is normal, Facial symmetry appears normal, Denies weakness blurred vision paresthesias. Cardiovascular: Capillary refill < 3 seconds in bilateral fingers Patient's skin is warm and dry. Respiratory: Respiratory effort is even, unlabored, Respiratory pattern is regular, symmetrical. GI: No signs and/or symptoms were reported involving the gastrointestinal system. Derm: Skin is intact, is healthy with good turgor. Musculoskeletal: Range of motion: limited in neck. 08:50 Reassessment: Patient appears in no apparent distress at this time. Patient and/or em family updated on plan of care and expected duration. Pain level reassessed. Patient is alert, oriented x 3, equal unlabored respirations, skin warm/dry/pink. pain 8/10, provider notified, new medications ordered. Vital Signs: 07:52 BP 108 / 88; Pulse 80; Resp 16; Temp 97.7(O); Pulse Ox 100% on R/A; Pain 8/10; hb ED Course: 07:46 Patient arrived in ED. mr 07:46 Ziggy Davis DO is Private Physician. mr 07:52 Triage completed. hb 07:52 Abhishek Bianchi PA is PHCP. jr8 07:52 Max Maynard MD is Attending Physician. jr8 07:52 Arm band placed on. hb 07:56 Barbara Valenzuela, ALLYSSA is Primary Nurse. iw 08:06 Patient has correct armband on for positive identification. iw 08:06 No provider procedures requiring assistance completed. Patient did not have IV access iw during this emergency room visit. 08:19 CT completed. Patient moved to CT via wheelchair. Patient moved back from CT. cw1 08:20 CT C Spine In Process Unspecified. EDMS 09:00 Andry Lai DO is Referral Physician. 09:00 Alden Joseph MD is Referral Physician. gs Administered Medications: 08:05 Drug: TORadol 30 mg Route: IM; Site: left deltoid; iw 08:47 Follow up: Response: No adverse reaction; Pain is unchanged, physician notified em 08:57 Drug: predniSONE 40 mg Route: PO; em 08:57 Drug: [place] 10 mg-325 mg 1 tabs Route: PO; em Outcome: 09:01 Discharge ordered by . gs 09:26 Discharged to home ambulatory. iw 09:26 Condition: good 09:26 Discharge instructions given to patient, Instructed on discharge instructions, follow up and referral plans. 09:26 Demonstrated understanding of instructions, follow-up care, medications, Prescriptions iw given X 2. 09:27 Patient left the ED. em Signatures: Dispatcher [employer] STEPHANIEFL Zoey Brewer mr Gerald Troncoso, [employer] FORMER [employer] FORMER Barbara Resendiz, RN RN jany Ness, Kayla cw1 Abhishek Bianchi PA PA jr8 Virgen Worrell, RN RN Max Powell MD MD gs
[2018-04-13 09:35] VITALS: BP 108/88; TEMP 97.7; O2SAT 100
== END 2018-04-13 09:27 | disposition home or self-care (01) ==
LOC: ER 07:43
DX: M43.6 Torticollis (principal)
CPT/HCPCS: 72125; 96372; 99284; J7512